=== PATIENT | male | born 1970 | race Two or more races ===

== ENCOUNTER 2019-03-29 11:17 | Inpatient (IN) | payer SELFPAY ==
[~2019-03-29] VITALS: Ht 165.1 cm; Wt 107.5 kg
[2019-03-29 12:55] LABS: Basophils # (auto) 0.1 uL; Basophils % (auto) 2.2 % (0.0-2.0); Eosinophils # (auto) 0.2 uL; Hematocrit 42.5 % (41.0-53.0); Hemoglobin 14.6 g/dL (13.5-17.5); Lymphocytes # (auto) 1.5 uL; Lymphocytes % (auto) 28.8 % (10.0-50.0); Mean Corpuscular Hgb Conc. 34.2 g/dL (32.0-36.0); Mean Corpuscular Volume 93.5 fL (80.0-100.0); Monocytes # (auto) 0.6 uL; Monocytes % (auto) 11.7 % (0.0-12.0); Neutrophils # (auto) 2.9 uL; Neutrophils % (auto) 54.3 % (37.0-80.0); Nucleated Red Blood Cells % 0.1 %; Platelet Count (auto) 95 10^3/uL (140-450); Red Blood Cells 4.55 10^6/uL (4.5-5.90); Red Cell Distribution Width 13.6 % (11.8-14.3); White Blood Cell 5.4 10^3/uL (4.4-10.8)
[2019-03-29 13:21] LABS: Alanine Aminotransferase 74 U/L (16-61); Anion Gap 4 (5-15); Aspartate Aminotransferase 79 U/L (15-37); BUN/Creatinine Ratio 12.6; Blood Urea Nitrogen 12 mg/dL (7-18); Calcium 8.5 mg/dL (8.5-10.1); Carbon Dioxide 26 mmol/L (21-32); Chloride 108 mmol/L (98-107); GFR African American 109 mL/min; GFR Non-African American 90 mL/min; Glucose 110 mg/dL (74-106); Magnesium 2.6 mg/dL (1.6-2.6); Potassium 3.7 mmol/L (3.5-5.1); Sodium 138 mmol/L (136-145)
[2019-03-29 13:26] LABS: Alkaline Phosphatase 150 U/L (45-117); Bilirubin, Total 0.7 mg/dL (0.2-1.0); Total Protein 8.1 g/dL (6.4-8.2)
[2019-03-29 16:07] LABS: Urine Bacteria NONE SEEN /hpf (None Seen); Urine Blood Negative /uL (Negative); Urine Specific Gravity 1.024 (1.001-1.035); Urine WBC 1 /hpf (0 - 3)
[2019-03-29] MEDS ORDERED: ONDANSETRON HCL 4 MG/2 ML VIAL IV PRN (18:15)
[2019-03-29] MEDS ORDERED: ALBUTEROL SULF 2.5 MG/0.5ML(0.5%) NEB SOLN NEB PRN (18:15)
[2019-03-29] MEDS ORDERED: ACETAMINOPHEN 500 MG TAB PO PRN (18:15)
[2019-03-29] MEDS ORDERED: MORPHINE SULF INJ 2 MG/ML SYRINGE 1ML IV PRN ×2 (18:15)
[2019-03-29] MEDS ORDERED: SODIUM CHLORIDE 0.9% 1,000 ML IV SCH (18:15)
[2019-03-29] MEDS ORDERED: HYDROcodone-ACET 5/325MG TAB PO PRN (18:15)
[2019-03-29] MEDS ORDERED: NITROGLYCERIN 0.4 MG SL TAB SL PRN (18:15)
[2019-03-29] MEDS ORDERED: IPRATROPIUM BROM 0.5 MG/2.5ML INH SOL NEB PRN (18:15)
[2019-03-29] MEDS ORDERED: cefTRIAXone 1GM/50ML D5W 50 ML IV SCH (18:15)
[2019-03-29] MEDS ORDERED: AZITHROMYCIN 500MG/ 250ML 250 ML IV SCH (18:28)
[2019-03-29 18:56] VITALS: BP 139/91
[2019-03-29 19:52] LABS: Amphetamine Screen, Urine NEGATIVE (NEGATIVE); Barbiturate Scree,Urine NEGATIVE (NEGATIVE); Benzodiazephine Screen, Urine NEGATIVE (NEGATIVE); Cannabinoid Screen, Urine NEGATIVE (NEGATIVE); Cocaine Screen, Urine NEGATIVE (NEGATIVE); Opiate Scree,Urine NEGATIVE (NEGATIVE); Phencyclidine Screen, Urine NEGATIVE (NEGATIVE)
--- NOTE | 2019-03-29 20:12 | NUR ---
Telemetry admit from ER LETITIA MEDINA admitted to Telemetry unit after SBAR received. Patient oriented to Naveen Rodriguez, primary RN, unit, room, bed, and unit policies regarding patient care and visiting hours. Patient now on continuous telemetry monitoring, tele box # [[id number]] and telemetry reading on arrival to unit is ST [id number]]. Patient weighed by bedscale and encouraged to call if they need something. All questions and concerns addressed, patient verbalized understanding. Note: []
--- NOTE | 2019-03-29 21:00 | NUR ---
AMA Note LETITIA MEDINA states they want to leave the hospital Against Medical Advice (AMA). Patient encouraged to stay for further treatment/stabilization. MD notified of patient's wishes. Patient advised of the risks of leaving AMA. Patient verbalized understanding. Patient encouraged to return to the ER if symptoms do not improve or worsen.
--- NOTE | 2019-03-29 21:00 | NUR ---
PATIENT LEFT AMA, IV removed with catheter intact, pressure dressing applied. Telemetry unit returned to ICU. Patient WALKED to vehicle with all personal belongings. No distress noted at time of departure.
[2019-03-29 21:16] VITALS: BP 142/92
[2019-03-29] MEDS ORDERED: METOPROLOL TARTRATE 25 MG TAB PO SCH (22:00)
[2019-03-30] MEDS ORDERED: FAMOTIDINE 20 MG TAB PO SCH (10:00)
[2019-03-30] MEDS ORDERED: ASPirin-EC 81 mg tab PO SCH (10:00)
== END 2019-03-29 21:53 | disposition left against medical advice (07) | DRG 194 ==
LOC: EDBD 11:17 → ER 11:36 → TELE 11:37 → TELE-CENTR 19:45
PROVIDERS: ADMIT Nurse Practitioner Acute Care; ATTEND Nurse Practitioner Acute Care
DX: J18.1 Lobar pneumonia, unspecified organism (principal); E44.0 Moderate protein-calorie malnutrition; I24.9 Acute ischemic heart disease, unspecified; R07.89 Other chest pain; D69.6 Thrombocytopenia, unspecified; I10 Essential (primary) hypertension; R79.89 Other specified abnormal findings of blood chemistry; Z53.21 Procedure and treatment not carried out due to patient leaving prior to being seen by health care provider
CPT/HCPCS: 36415; 71045; 80053; 80307; 81001; 83735; 84484; 85025; 85379; 86141; 94761; 96365; G0378; J0696